=== PATIENT | male | born 2000 | race Caucasian/White ===

== ENCOUNTER 2021-10-25 15:22 | Emergency (ER) | payer SELFPAY ==
[~2021-10-25] VITALS: Ht 177.8 cm; Wt 87.7 kg
[2021-10-25 16:20] VITALS: BP 135/77; PULSE 93; TEMP 98.9
== END 2021-10-25 16:20 | disposition home or self-care (01) ==
LOC: COL.ER 15:22
DX: R55 Syncope and collapse (principal); Z28.310 Unvaccinated for COVID-19